=== PATIENT | female | born 1970 | race Caucasian/White ===

== ENCOUNTER 2018-04-04 10:11 | Emergency (ER) | payer SELFPAY ==
--- NOTE | 2018-04-04 10:38 | UC ---
Hand/Wrist HPI - HPI Summary HPI Summary: Patient was handling her dogs and injured her thumb 2 days ago. the thumb is swollen, bruised and the swelling runs down into the wrist - History Of Current Complaint Stated Complaint: LEFT THUMB INJURY Time Seen by Provider: 04/04/18 10:31 Hx Obtained From: Patient Hx Last Menstrual Period: 3 weeks ago Onset/Duration: Sudden Onset, Lasting Days Severity Initially: Severe Severity Currently: Severe Character Of Pain: Throbbing, Spasmodic, Stiffness Aggravating Factor(s): Movement Alleviating Factor(s): Nothing Associated Signs And Symptoms: Positive: Swelling, Bruising - Allergies/Home Medications Allergies/Adverse Reactions: Allergies Allergy/AdvReac Type Severity Reaction Status Date / Time No Known Allergies Allergy Verified 04/04/18 10:41 Home Medications: Home Medications NK [No Home Medications Reported] 04/04/18 [History Confirmed 04/04/18] PMH/Surg Hx/FS Hx/Imm Hx Previously Healthy: Yes - Surgical History Surgical History: Yes Surgery Procedure, Year, and Place: OR to reset a dislocated shoulder - Family History Known Family History: Positive: Other - mom with brain aneurysm Negative: Cardiac Disease, Hypertension - Social History Alcohol Use: Occasionally Substance Use Type: None Smoking Status (MU): Former Smoker Amount Used/How Often: less than 1/2 ppd Length of Time of Smoking/Using Tobacco: started ~ age 18 Have You Smoked in the Last Year: Yes When Did the Patient Quit Smoking/Using Tobacco: quit 03/19/2015 Review of Systems All Other Systems Reviewed And Are Negative: Yes Constitutional: Positive: Negative Skin: Positive: Bruising Eyes: Positive: Negative ENT: Positive: Negative Respiratory: Positive: Negative Cardiovascular: Positive: Negative Gastrointestinal: Positive: Negative Genitourinary: Positive: Negative Motor: Positive: Negative Neurovascular: Positive: Negative Musculoskeletal: Positive: Decreased ROM, Edema Neurological: Positive: Negative Psychological: Positive: Negative Is Patient Immunocompromised?: No Physical Exam Triage Information Reviewed: Yes Appearance: Well-Appearing, Well-Nourished, Pain Distress Vital Signs Reviewed: Yes Eye Exam: Normal ENT Exam: Normal Dental Exam: Normal Neck exam: Normal Cardiovascular Exam: Normal Cardiovascular: Positive: RRR, No Murmur, Pulses Normal Abdominal Exam: Normal Abdomen Description: Positive: Nontender, No Organomegaly, Soft Bowel Sounds: Positive: Present Musculoskeletal: Positive: ROM Limited @ - due to pain and swelling, Edema @ - left thumb into wrist Neurological Exam: Normal Psychological Exam: Normal Skin: Positive: Other - bruising on the left thumb Hand/Wrist Course/Dx - Course Course Of Treatment: hx obtained, exam performed ,meds reviewed, xray obtained, possible chip fracture noted - Differential Dx/Diagnosis Differential Diagnosis/HQI/PQRI: Contusion, Fracture, Sprain, Strain Provider Diagnosis: Fracture of distal phalanx of thumb Discharge - Sign-Out/Discharge Documenting (check all that apply): Patient Departure All imaging exams completed and their final reports reviewed: Yes - Discharge Plan Condition: Stable Disposition: HOME Patient Education Materials: Thumb Fracture (ED) Referrals: No Primary Care Phys,NOPCP [Primary Care Provider] - Additional Instructions: 1. use the brace for the next 2 weeks to help with healing. 2. The xray showed a possible small chip fracture to the end of the thumb. 3. If not improving over the next week, follow upw ith orthopedics for futher exam. 3. Soak in warm water a few times a day - Billing Disposition and Condition Condition: STABLE Disposition: Home
[2018-04-04 10:40] VITALS: BP 128/70
== END 2018-04-04 11:29 | disposition home or self-care (01) ==
LOC: UCCORT 10:11
DX: S62.525A Nondisplaced fracture of distal phalanx of left thumb, initial encounter for closed fracture (principal); X58.XXXA Exposure to other specified factors, initial encounter; Y93.89 Activity, other specified; Y92.9 Unspecified place or not applicable; Z87.891 Personal history of nicotine dependence
CPT/HCPCS: 99211; G0463

== ENCOUNTER 2018-08-12 18:49 | Inpatient (IN) | payer SELFPAY ==
--- NOTE | 2018-08-12 20:21 | ED ---
HPI Chest Pain - HPI Summary HPI Summary: A 48 y/o female presents to [facility] with a chief complaint of cough with chest pain for 1.5 months. The patient came from [facility] where she had a CXR done which was abnormal. She claims that one side of her lungs had fluid and the other side of her lungs had a spot on it. She did not get blood work done while at [facility]. She claims her pain is more on the right side of her chest but started out more on her left side. She is a former smoker, smoking for a long time. She recently quit vaping. Hx of a heart murmur. - History of Current Complaint Chief Complaint: EDChestPainROMI Time Seen by Provider: 08/12/18 20:16 Hx Obtained From: Patient Hx Last Menstrual Period: 3 weeks ago Onset/Duration: Started Weeks Ago, Still Present Timing: Constant, Lasting Weeks Initial Severity: Mild Current Severity: Mild Pain Intensity: 2 Pain Scale Used: 0-10 Numeric Chest Pain Location: Diffuse - more right sided Chest Pain Radiates: No Character: Other: - unable to describe Aggravating Factor(s): Nothing Alleviating Factor(s): Nothing Associated Signs and Symptoms: Positive: Cough. Negative: Fever - Allergy/Home Medications Allergies/Adverse Reactions: Allergies Allergy/AdvReac Type Severity Reaction Status Date / Time No Known Allergies Allergy Verified 08/12/18 13:55 Home Medications: Home Medications NK [No Home Medications Reported] 08/12/18 [History Confirmed 08/12/18] PMH/Surg Hx/FS Hx/Imm Hx Endocrine/Hematology History: Denies: Hx Diabetes, Hx Thyroid Disease Cardiovascular History: Denies: Hx Hypertension Respiratory History: Denies: Hx Asthma, Hx Chronic Obstructive Pulmonary Disease (COPD) GI History: Denies: Hx Ulcer - Surgical History Surgery Procedure, Year, and Place: OR to reset a dislocated shoulder Infectious Disease History: No Infectious Disease History: Denies: Hx Clostridium Difficile, Hx Hepatitis, Hx Human Immunodeficiency Virus (HIV), Hx of Known/Suspected MRSA, Hx Shingles, Hx Tuberculosis, Hx Known/ Suspected VRE, Hx Known/Suspected VRSA, History Other Infectious Disease, Traveled Outside the [place] in Last 30 Days - Family History Known Family History: Positive: Other - mom with brain aneurysm Negative: Cardiac Disease, Hypertension - Social History Alcohol Use: Rare Substance Use Type: Reports: None Hx Tobacco Use: Yes Smoking Status (MU): Former Smoker Type: Smokeless Tobacco Amount Used/How Often: less than 1/2 ppd Length of Time of Smoking/Using Tobacco: started ~ age 18 Have You Smoked in the Last Year: Yes Review of Systems Negative: Fever Positive: Chest Pain Positive: Cough All Other Systems Reviewed And Are Negative: Yes Physical Exam - Summary Physical Exam Summary: VITAL SIGNS: Reviewed. GENERAL: Patient is a well-developed and nourished FEMALE who is lying comfortable in the stretcher. Patient is not in any acute respiratory distress. HEAD AND FACE: No signs of trauma. No ecchymosis, hematomas or skull depressions. No sinus tenderness. EYES: PERRLA, EOMI x 2, No injected conjunctiva, no nystagmus. EARS: Hearing grossly intact. Ear canals and tympanic membranes are within normal limits. MOUTH: Oropharynx within normal limits. NECK: Supple, trachea is midline, no adenopathy, no JVD, no carotid bruit, no c- spine tenderness, neck with full ROM. CHEST: Symmetric, no tenderness at palpation LUNGS: Clear to auscultation bilaterally. No wheezing or crackles. CVS: Regular rate and rhythm, S1 and S2 present, no murmurs or gallops appreciated. ABDOMEN: Soft, non-tender. No signs of distention. No rebound no guarding, and no masses palpated. Bowel sounds are normal. EXTREMITIES: FROM in all major joints, no edema, no cyanosis or clubbing. NEURO: Alert and oriented x 3. No acute neurological deficits. Speech is normal and follows commands. SKIN: Dry and warm Triage Information Reviewed: Yes Vital Signs On Initial Exam: Initial Vitals Temp Pulse Resp BP Pulse Ox 98.4 F 102 18 146/77 96 08/12/18 18:53 08/12/18 18:53 08/12/18 18:53 08/12/18 18:53 08/12/18 18:53 Vital Signs Reviewed: Yes Diagnostics - Vital Signs Vital Signs Temp Pulse Resp BP Pulse Ox 08/12/18 18:53 98.4 F 102 18 146/77 96 - Laboratory Result Diagrams: 08/12/18 21:12 08/12/18 21:12 Lab Statement: Any lab studies that have been ordered have been reviewed, and results considered in the medical decision making process. - CT Chest CT Interpretation Completed By: Radiologist Summary of CT Findings: 1. Airspace disease involving the bilateral upper lobes concerning for. pneumonia. Followup recommended to exclude neoplastic process. 2. Moderate left-sided pleural effusion. ED physician has reviewed this imaging report. - EKG 19:04 Cardiac Rate: NL - 90 bpm EKG Rhythm: Sinus Rhythm Summary of EKG Findings: EKG at 19:04 showed NSR at 90 bpm, Normal axis. Normal interval. No ischemic changes. Re-Evaluation - Re-Evaluation First Eval Re-Evaluation Time: 20:46 Change: Unchanged Comment: Pt reports that she has not seen an MD in 20 years. She has a Hx of night fever and night sweats. The patient has lost weight in recent months but this was intentional as she was trying to lose weight. 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 Second Eval Re-Evaluation Time: 23:47 Change: Unchanged Comment: Discussed results and plan for admission. Chest Pain Course/Dx - Course Course Of Treatment: A 48 y/o female presents to [facility] with a chief complaint of cough with chest pain for 1.5 months. Pt reports that she has not seen an MD in 20 years. She has a Hx of night fever and night sweats. The patient has lost weight in recent months but this was intentional as she was trying to lose weight. 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 Reviewed CXR at . Pt has bilateral upper lobe infiltrate, larger on the left side. Suspicious for TB. Pt placed on negative pressure isolation. The physical exam was unremarkable. EKG at 19:04 showed NSR at 90 bpm, Normal axis. Normal interval. No ischemic changes. Blood work and chemistries obtained and are WNL. In the ED course the patient was given Levaquin, Iohexol and Sodium Chloride IV. Chest CT impression: 1. Airspace disease involving the bilateral upper lobes concerning for. pneumonia. Followup recommended to exclude neoplastic process. 2. Moderate left-sided pleural effusion. Case discussed with Dr. Joshi, hospitalist, who accepted the patient for admission. The patient is agreeable with this plan. - Diagnoses Provider Diagnoses: Pneumonia, Pleural effusion, right - Provider Notifications Discussed Care Of Patient With: Lupe Joshi Time Discussed With Above Provider: 23:44 Instructed by Provider To: Admit As Inpatient - Critical Care Time Critical Care Time: 30-74 min Discharge - Sign-Out/Discharge Documenting (check all that apply): Patient Departure - admit Patient Received Moderate/Deep Sedation with Procedure: No - Discharge Plan Condition: Fair Disposition: ADMITTED TO [facility] Referrals: No Primary Care Phys,NOPCP [Primary Care Provider] - - Attestation Statements Document Initiated by Scribe: Yes Documenting Scribe: Myron Montalvo Provider For Whom Scribe is Documenting (Include Credential): Vito Castro MD Scribe Attestation: IMyron, scribed for Vito Castro MD on 08/12/18 at 3114.
[2018-08-12] MEDS ORDERED: NS 0.9% 1000 ML** 1,000 ML IV ONE (20:50)
[2018-08-12] MEDS ORDERED: Levofloxacin 750 MG IVPREMIX(* 750 MG/150 ML BAG IVPB ONE (20:50)
[2018-08-12 21:20] LABS: ABS Basophils 0 10^3/ul (0-0.2); ABS Eosinophils 0.3 10^3/ul (0-0.6); ABS Lymphocytes 1.5 10^3/ul (1.0-4.8); ABS Monocytes 0.6 10^3/ul (0-0.8); ABS Neutrophils 7.5 10^3/ul (1.5-7.7); ABS Nucleated RBC 0 10^3/ul; Eosinophil % 3.3 %; Hematocrit 35 % (33-41); Hemoglobin 11.4 g/dL (12.0-16.0); Lymphocyte % 14.8 %; Mean Corpuscular HGB Conc 33 g/dL (31-36); Mean Corpuscular Hemoglobin 27 pg (27-31); Mean Corpuscular Volume 82 fL (80-97); Nucleated Red Blood Cells % 0; Platelet Count 487 10^3/uL (150-450); Red Blood Count 4.29 10^6 /uL (3.70-4.87); Red Cell Distribution Width 14 % (10.5-15); White Blood Count 9.9 10^3/uL (3.5-10.8)
[2018-08-12 21:28] LABS: Activated Partial Thrombo Time 33.6 seconds (26.0-36.3); INR 1.07 (0.77-1.02)
[2018-08-12 21:38] LABS: Albumin 3.8 g/dL (3.2-5.2); Albumin/Globulin Ratio 1.1 (1-3); BUN/Creatinine Ratio 15.3 (8-20); C Reactive Protein 109.62 mg/L (<8.01); Calcium 9.3 mg/dL (8.6-10.3); EGFR African American 132.8 (>60); EGFR Non-African American 109.7 (>60); Globulin 3.6 g/dL (2-4); Potassium 3.7 mmol/L (3.5-5.0); Total Bilirubin 0.4 mg/dL (0.2-1.0); Total Protein 7.4 g/dL (6.4-8.9)
[2018-08-12] MEDS ORDERED: Iohexol 300* (CONTRAST) 10 ML SDV IV ONE (21:47)
[2018-08-13] MEDS ORDERED: Acetaminophen TAB* 325 MG PO PRN (00:18)
[2018-08-13] MEDS ORDERED: guaiFENesin/CODIEN 100MG-10MG* 5 ML UDC PO PRN (00:24)
--- NOTE | 2018-08-13 03:35 | HP ---
HISTORY AND PHYSICAL: DATE OF ADMISSION: 08/13/18 PRIMARY CARE PHYSICIAN: No PCP. HEALTHCARE PROXY: Brother, Aaron Lockett, . Other close contact, [id number], June, [phone]. CODE STATUS: Full. CHIEF COMPLAINT: Mass on chest x-ray. HISTORY OF PRESENT ILLNESS: Ms. Lockett is a 48-year-old healthy woman, who is presenting with 6 to 8 weeks of a nonproductive cough that eventually became associated with pain in her upper right chest with cough. The patient has not seen a doctor in approximately 20 years, but as this cough has been unremitting and now associated with chest pain, she had decided to go to an urgent care where a chest x- ray was performed and had concerning findings, so she was referred to the emergency room. The patient does endorse recent night sweats and a few pounds of weight loss, which was intentional. Around this time, she has also been experiencing swelling and pain of the joints in her hands, knees, and feet which she worried was related to her family history of rheumatoid arthritis. Otherwise, a 10-point review of systems is negative. PAST MEDICAL HISTORY: Cardiac murmur. PAST SURGICAL HISTORY: Right shoulder surgery. HOME MEDICATIONS: Denies. ALLERGIES: No known drug allergies. FAMILY HISTORY: Significant for mother with rheumatoid arthritis. She does not know her father's health history. SOCIAL HISTORY: The patient lives with her brother, Aaron and [id number], June. 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 She has a 26-pack year history of smoking and quit in 2014. She does not drink or do any other drugs. PHYSICAL EXAMINATION GENERAL: She is a well-appearing woman, in no distress, speaking in full sentences and very pleasant. VITAL SIGNS: The patient is afebrile, heart rate in the 80s, blood pressure 120s/70s, respirations 12, oxygen saturation 97% on room air. HEENT: Pupils equal, round, and reactive to light. Oropharynx clear. NECK: No cervical lymphadenopathy. Supple. LUNGS: Clear to auscultation bilaterally. The patient coughs when taking deep breaths. HEART: Regular rate and rhythm. No murmurs, gallops, or rubs. ABDOMEN: Soft, nontender, nondistended. EXTREMITIES: Swelling over 2nd and 3rd MCP joints bilaterally, no erythema; LE warm and well perfused. No edema. DIAGNOSTIC STUDIES/LAB DATA: Labs reviewed and significant for mild anemia, hemoglobin 11.4 normocytic, platelets elevated to 487. BMP and hepatic panel unremarkable. C-reactive protein 110. A chest CT with contrast was significant for airspace disease involving the bilateral upper lobes concerning for pneumonia, but followup is recommended to exclude neoplastic process. Moderate left-sided pleural effusion. ASSESSMENT AND PLAN: 48-year-old healthy woman with significant past smoking history, who is presenting with subacute cough and night sweats and was found on CT scan to have findings concerning for pneumonia versus neoplastic process. 1. Lung disease, NOS. As the patient has been without fevers, has had several weeks of mild symptoms and has no white count, I have very low suspicion for bacterial pneumonia at this point and will not continue Levaquin given in the emergency room. While the patient has had no tuberculosis exposures or travel, given location of airspace disease, we will continue with tuberculosis rule out. Most concerned for neoplastic process in this patient was significant smoking history and several weeks of cough. We will need Pulmonology consult in the morning as a diagnostic thoracentesis will be valuable for this diagnosis. Will maintain patient on guaifenesin with codeine as needed for cough. Follow up blood and sputum cultures. 2. Joint pain. Unclear if the patient has had chronic joint pain or if truly has been associated with the beginning of cough. It is unlikely to be related to a new lung malignancy and her symptoms do not quite match up with hypertrophic osteoarthropathy. We will order a rheumatoid factor level for the morning and if symptoms persist, can consider rheumatologic consult. 3. DVT prophylaxis start Lovenox daily. 4. Code status, full code. TIME SPENT: Approximately 60 minutes was spent on admission of this patient, more than half of which was spent at bedside for interview and exam. [id number]/[facility] #: [id number] FRANK
[2018-08-13 08:10] LABS: ABS Basophils 0 10^3/ul (0-0.2); ABS Eosinophils 0.4 10^3/ul (0-0.6); ABS Lymphocytes 1.4 10^3/ul (1.0-4.8); ABS Monocytes 0.8 10^3/ul (0-0.8); ABS Neutrophils 5.1 10^3/ul (1.5-7.7); ABS Nucleated RBC 0 10^3/ul; Eosinophil % 5.6 %; Hematocrit 33 % (33-41); Lymphocyte % 18.4 %; Mean Corpuscular HGB Conc 33 g/dL (31-36); Mean Corpuscular Hemoglobin 27 pg (27-31); Mean Corpuscular Volume 82 fL (80-97); Nucleated Red Blood Cells % 0; Platelet Count 445 10^3/uL (150-450); Red Blood Count 4.06 10^6 /uL (3.70-4.87); Red Cell Distribution Width 14 % (10.5-15); White Blood Count 7.8 10^3/uL (3.5-10.8)
[2018-08-13] MEDS ORDERED: Enoxaparin(*) 40 MG/0.4 ML SYR SUBCUT SCH (09:00)
[2018-08-13] MEDS ORDERED: Sodium Chloride(INHALANT) 3%* 4 ML NEB.SOLN INH PRN (09:01)
[2018-08-13] MEDS ORDERED: PPD test dose* 5 TU/0.1 ML TEST (*USE PPD ORDER SET*) INTRADERM ONE (11:00)
--- NOTE | 2018-08-13 12:27 | CONS ---
CONSULTATION REPORT: DATE OF CONSULT: 08/13/18 PRIMARY CARE PROVIDER: No PCP. PROVIDER REQUESTING CONSULTATION: Haily Mercado NP. CONSULTING SERVICE: Infectious Disease. ATTENDING PROVIDER: Dr. Shin Waddell* (dictated by Cipriano Adams NP). REASON FOR CONSULT: Lung mass, infective versus malignancy. HISTORY OF PRESENT ILLNESS: Ms. Lockett is a 48-year-old female with no significant past medical history, who initially presented to Urgent Care complaining of 6 to 8 weeks of a nonproductive cough. She developed associated upper right chest discomfort with the cough. She denies any fevers or chills. She reports fatigue that she states is her baseline. She also reports foot pain while she is at work that has progressed to knee pain bilaterally with the left being worse than the right. She denies any injury or trauma to her knees. Additionally, she has some discomfort in both hands. She denies any urinary symptoms such as urgency or dysuria, she reports urinary frequency at baseline due to drinking large amounts of water. She denies muscle pain, rash, diarrhea , constipation, or recent travel. She reports when her symptoms first started she had a little bit of a runny nose, but this has since resolved. She denies any known exposure to tuberculosis. She has never had a PPD in the past. She does endorse some night sweats, and reports weight loss, but states this is intentional. Due to her symptoms, she presented to Urgent Care for evaluation. While at Urgent Care, she had a chest x-ray showing interval development of a right upper lobe mass with left-sided pleural thickening and pleural effusion with left basilar atelectasis versus consolidation. She is referred to the emergency room for further evaluation. While in the emergency room, she had a chest CT showing "significant airspace disease involving bilateral upper lobes concerning for possible pneumonia and a moderate left-sided pleural effusion". She had labs that were mostly unremarkable, no leukocytosis. She was afebrile with a CRP of 109. She was referred to the hospitalist service for evaluation and admission. IMPRESSION: 1. Abnormal chest x-ray and chest CT. The findings on imaging are consistent with infectious versus neoplastic process. This could also represent a rheumatoid lung process. Infectious process includes TB vs pneumonia. There are no crackles on exam, she is afebrile, and no leukocytosis. I have a low suspicion for pneumonia at this time. She is noted to have an elevated rheumatoid factor. First AFB is being collected this morning. PLAN/ASSESSMENT: I recommend placing a PPD and attempt to get an induced sputum today. If able to obtain a sputum, can do a sputum culture with an acid fast bacilli testing; if unable to get an induced sputum, she can be taken off of airborne precautions as TB is unlikely. If able to obtain a sputum sample, she will need to have 3 AFBs. I recommend adding HIV testing to her ER labs and continue to hold on antibiotics at this time. I recommend getting a pulmonology consult to evaluate the cause of the pleural effusion with a bronchoscopy versus thoracentesis. Recommend doing followup labs to further evaluate for the possibility of rheumatoid arthritis. PAST MEDICAL HISTORY: Heart murmur. PAST SURGICAL HISTORY: Status post right shoulder surgery. MEDICATIONS: Home medications: None. Hospital medications: 1. Acetaminophen 650 mg by mouth every 4 hours as needed for fever/pain. 2. Lovenox 40 mg subcutaneously every day. 3. Robitussin AC 10 mL by mouth every 6 hours as needed for cough. 4. Sodium chloride 3 mL inhalation every 2 hours as needed for sputum induction. ALLERGIES: No known drug allergies. FAMILY HISTORY: Denies any family history of recurrent or resistant infections. Denies family history of coronary artery disease or diabetes. A maternal grandfather with a history of skin cancer. Mother with a history of rheumatoid arthritis. SOCIAL HISTORY: She denies tobacco or recreational drug use. She is a former smoker, quitting in 2014. Prior to that, she had a half a pack a day smoking history for 26 years. REVIEW OF SYSTEMS: I performed a 10-point review of systems. All the pertinent positives and negatives are mentioned in the history of present illness. The remaining review of systems are negative. PHYSICAL EXAM: Vital Signs: Temperature 97.9, heart rate 77, respiratory rate 16, O2 sat 96% on room air, blood pressure 101/65. General Appearance: Alert, pleasant, appears to be in no acute distress. Head: Normocephalic, atraumatic. ENT: Pupils are equal and reactive to light. Extraocular movements are intact. No conjunctival hemorrhage. Mucous membranes are moist. Neck is supple. No lymphadenopathy noted. Neurological: Alert and oriented x4. Cranial nerves II through XII are grossly intact. Cardiovascular: Regular rate and rhythm. S1, S2 are present. No murmurs, rubs, or gallops heard. Respiratory: No accessory muscle use. The lungs are clear to auscultation bilaterally. Abdomen: Bowel sounds present x4. Abdomen is soft, nontender, nondistended. Extremities: No lower extremity edema. DP and PT pulses are 2+ and symmetric. Musculoskeletal: No clubbing or cyanosis noted. Exhibits good strength in all extremities. There is no tenderness with palpation of the neck or spine over the back. She has swelling over the second and third MTP joints, bilateral. There is no erythema. Psychological: Calm and cooperative. Skin: No rashes or abnormalities seen on the exposed skin. DIAGNOSTIC STUDIES/LAB DATA: Sodium 138, potassium 3.7, chloride 102, CO2 of 27 , BUN 9, creatinine 0.59, glucose 100. White blood cell count 7.8, hemoglobin 11.0, hematocrit 33, platelet count 445. Rheumatoid factor 118, CRP 109. Please see impression and recommendations outlined above. Thank you for asking us to see Ms. Lockett in consultation. This has been discussed with Haily Mercado NP. TIME SPENT: Time spent for this consultation was approximately 40 minutes; greater than half of that was spent with the patient discussing past medical history, medications, the events leading to her arrival, and performing a physical examination. The case has been reviewed with the attending, Dr. Waddell, who agrees with the plan of care. Reviewed by CIPRIANO ADAMS, TUMBLER DRIER OPERATOR-C 08/14/18 1533 Seen, examined, discussed sybil Adams DIGITAL ARCHIVIST, I agree with her full note. Impression/Recommendations: 1. Biapical lung infiltrates, pleural effusion with 2 months cough and weight loss. Infectious considerations include TB, nocardia, endemic fungi. Non infectious include malignancy and rheumatoid lung disease. Will place TST, induce sputa for AFB smear and culture x3. Dr Horton is arranging a thoracentesis as well. No antibiotics for now. [id number]/[facility] #: [id number] MTDD
--- NOTE | 2018-08-13 15:16 | PN ---
Subjective Date of Service: 08/13/18 Interval History: Ms. Lockett does not feel any better or worse than yesterday. Her sister in law is at the bedside. They are very anxious to have results and know whether or not this is a malignancy. She continues to have a dry cough, nonproductive. Did not sleep well overnight. Complains of arthralgias - bilat knees and hands. She reports nodules on bilat hands. Denies CP, SOB, N/V. Endorses a poor appetite. She did need a note for work indicating that she was hospitalized at this time. No concerns from nursing. Family History: Unchanged from Admission Social History: Unchanged from Admission Past Medical History: Unchanged from Admission Objective Active Medications: Acetaminophen (Tylenol Tab*) 650 mg PO Q4H PRN FEVER/PAIN Enoxaparin Sodium (Lovenox(*)) 40 mg SUBCUT Q24H RULA Guaifenesin/Codeine Phosphate (Robitussin Ac 100mg-10mg*) 10 ml PO Q6H PRN COUGH Sodium Chloride (Sodium Chloride(Inhalant) 3%*) 3 ml INH Q2H PRN Sputum induction Vital Signs - 8 hr 08/13/18 08/13/18 08/13/18 07:31 08:00 12:05 Temperature 97.9 F 99.4 F Pulse Rate 77 76 Respiratory 16 16 16 Rate Blood Pressure 101/65 116/66 (mmHg) O2 Sat by Pulse 96 96 Oximetry 08/13/18 15:00 Temperature 98.7 F Pulse Rate 89 Respiratory 16 Rate Blood Pressure 114/65 (mmHg) O2 Sat by Pulse 95 Oximetry Oxygen Devices in Use Now: None Appearance: Middle-aged female sitting in chair in NAD Eyes: No Scleral Icterus Ears/Nose/Mouth/Throat: Mucous Membranes Moist Neck: NL Appearance and Movements; NL JVP, Trachea Midline Respiratory: Symmetrical Chest Expansion and Respiratory Effort, - - Diminished LLL, otherwise clear Cardiovascular: NL Sounds; No Murmurs; No JVD, RRR Abdominal: NL Sounds; No Tenderness; No Distention Extremities: No Edema Neurological: Alert and Oriented x 3 Lines/Tubes/Other Access: Clean, Dry and Intact Peripheral IV Nutrition: Taking PO's Result Diagrams: 08/13/18 07:51 08/12/18 21:12 Assess/Plan/Problems-Billing Assessment: Ms. Lockett is a 48 yo F with no significant PMH who presented to the ED with c/o 6 -8 weeks of nonproductive cough, night sweats, and chest pain and was admitted because of abnormal findings on CT concerning for malignancy vs infectious process. - Patient Problems (1) Cough present for greater than 3 weeks Code(s): R05 - COUGH Comment: - Nonproductive cough for 6-8 weeks with associated CP and night sweats - CT shows bilat upper lobe airspace disease concerning for pneumonia or neoplastic process and moderate left sided pleural effusion - Differentials include TB, malignancy (long smoking history), extra-articular rheumatoid manifestation (FH of RA and arthralgias), CAP - Appreciate Pulmonology consult - Appreciate ID consult; recommends PPD, acid fast sputum testing, HIV testing, further testing for rheumatoid component - PPD placed today, to be read Friday - Anticipate will likley need thoracentesis to determine etiology of effusion - One sputum sample obtained today by induction sent for acid fast testing; will need 2 additional samples on separate days to r/o TB but will need to continue airborne precautions for now - No indication for abx at this point (2) Arthralgia Code(s): M25.50 - PAIN IN UNSPECIFIED JOINT Comment: - Bilateral feet, knees, and hands with edema over bilat MTP joints - Family history of RA (mother) - RF and CRP elevated, though these are nonspecific - Will check other labs including QUIANA, ANCA, cryoglobulin, ESR, dsDNA, cyclic citrullinated peptide - Possible that this does represent RA and CT findings are an extra-articular manifestation (3) DVT prophylaxis Comment: - Lovenox (4) Full code status Code(s): Z78.9 - OTHER SPECIFIED HEALTH STATUS Comment: Status and Disposition: Inpatient for continued workup of symptoms and CT findings. Anticipate d/c home when medically stable, timeframe unknown. Attending: Dottie Bunch
[2018-08-13 17:13] LABS: Erythrocyte Sed Rate 29 mm/Hr (0-19)
--- NOTE | 2018-08-13 22:21 | CONS ---
PULMONARY CONSULTATION REPORT: DATE OF CONSULT: 08/13/18 CONSULTATION REQUESTED BY: Haily Mercado NP REASON FOR CONSULTATION: Evaluation of abnormal CT chest. HISTORY OF PRESENT ILLNESS: The patient is a 48-year-old woman, a former smoker with family history of rheumatoid arthritis, personal history of cardiac murmur. The patient presents for evaluation of productive cough over the past 6 to 8 weeks, which has been gradually worsening. The patient also with pain in the right chest. The patient also reports joint swelling and inflammation in the extremities in the small joints in the hand. Symptoms were not improving and decided to come into the emergency room. The patient denies known sick contacts recently. She does report low-grade fevers and night sweats. The patient reports weight loss recently, which she thinks is intentional. Further evaluation in the emergency room included CT scan of the chest. I have personally reviewed CT scan of the chest images. Also reviewed the results with the patient - the patient noted to have airspace opacities predominantly involving upper lobes greater on the left side. The patient also with moderate left-sided pleural effusion with adjacent atelectasis of the left lung. No significant other findings noted other than mild mediastinal adenopathy. PAST MEDICAL HISTORY: Cardiac murmur. PAST SURGICAL HISTORY: Right shoulder surgery. MEDICATIONS: The patient not on any medications at home. ALLERGIES: No known drug allergies. FAMILY HISTORY: Rheumatoid arthritis in mother. 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 Twenty six pack-year smoking history , quit in 2014. Does not drink or use other drugs. PHYSICAL EXAM: The patient in bed, in no apparent distress. Vital Signs: Temperature 99.4, pulse 76 beats per minute, respiratory rate 16, per minute O2 96% on room air, blood pressure 116/66. HEENT: Pupils equal and reactive to light. Mucous membranes moist. Lungs: Good air entry bilaterally. No wheeze or rhonchi. Cardiovascular: S1 and S2 present, regular. No murmurs, gallops, or rubs. Abdomen: Soft, nontender, nondistended. Bowel sounds present. Musculoskeletal: Swollen and inflamed metacarpal phalangeal joints in extremities bilaterally. Extremities: Normal range of motion. Skin: No rash or bruises. Neuro: Alert, awake, oriented x3. No focal deficits. DIAGNOSTIC STUDIES/LAB DATA: Hemoglobin 11.0, hematocrit 33, WBC count 7.8, platelet count 445. ESR elevated at 29. Sodium 138, potassium 3.7, chloride 102, bicarb 27, BUN 9, creatinine 0.59, lactic acid 0.6. CRP 109.62. BNP within normal limits. LFTs within normal limits. Calcium within normal limits. Rheumatoid factor is elevated at 118. HIV and hepatitis B negative. AFB x1 negative. CT scan of the chest as described above in HPI. IMPRESSION AND RECOMMENDATIONS: 48-year-old female with prior smoking history, family history of rheumatoid arthritis, admitted with cough for 3 weeks, night sweats, weight loss, found to have airspace opacities in upper lung zones bilaterally. CT chest abnormalities - inflammatory versus infectious versus neoplastic. Given elevated rheumatoid factor, pleural effusion, and joint symptoms and 3- week progression of symptoms suggestive of possible rheumatoid arthritis related lung involvement. Given significant smoking history, neoplastic disease is also in the differential, although less likely than probably rheumatoid arthritis. The patient with moderate left pleural effusion. Will schedule the patient for thoracentesis with image guidance tomorrow. Next, I will hold Lovenox after midnight. Procedure was discussed in detail with the patient. Associated risks and benefits were thoroughly explained. I agree with empiric treatment of pneumonia. Further recommendations pending thoracentesis results. [id number]/[facility] #: [id number] MTDD
[2018-08-14] MEDS ORDERED: LORazepam TAB(*) 0.5 MG PO PRN (08:56)
--- NOTE | 2018-08-14 09:20 | PN ---
Progress Note - Progress Note Date of Service: 08/14/18 SOAP: Subjective: CC: Abnormal chest xray/CT due to infective vs neoplasm source HPI: Ms. Lockett is a 48 yo female with no significant PMH who presented to the hospital with complaints of a non productive cough. She does have a 26 year smoking history. She continues to have an intermittent non productive cough, occasionally she is able to get sputum part way up but is unable to get it all the way up to spit out. Denies fever, chills, shortness of breath, chest discomfort, N/V/D. Objective: Laboratory Results - last 24 hr 08/12/18 08/12/18 08/13/18 21:12 21:12 07:51 WBC 9.9 7.8 RBC 4.29 4.06 Hgb 11.4 L 11.0 L Hct 35 33 MCV 82 82 MCH 27 27 MCHC 33 33 RDW 14 14 Plt Count 487 H 445 MPV 7.0 L 7.0 L Neut % (Auto) 75.5 65.1 Lymph % (Auto) 14.8 18.4 Brooks % (Auto) 5.9 10.3 Eos % (Auto) 3.3 5.6 Baso % (Auto) 0.5 0.6 Absolute Neuts (auto) 7.5 5.1 Absolute Lymphs (auto) 1.5 1.4 Absolute Monos (auto) 0.6 0.8 Absolute Eos (auto) 0.3 0.4 Absolute Basos (auto) 0 0 Absolute Nucleated RBC 0 0 Nucleated RBC % 0 0 ESR Cancelled 29 H HIV 1&2 Antibody Nonreactive Physical Exam: General: NAD, sitting up in bed Neurological: Alert and Oriented x3 Cardiovascular: Heart rate regular Respiratory: Lung sounds clear Abdominal: Bowel sounds present, ABD soft, non tender and non distended Skin: No rashes or abnormalities seen on the exposed skin Microbiology 08/13/18 10:04 Acid Fast Bacilli Smear - Final Respiratory - Sputum Induced 08/12/18 21:12 Aerobic Blood Culture - Preliminary Blood Venous No Growth Day 1 Anaerobic Blood Culture - Preliminary No Growth Day 1 08/12/18 21:12 Aerobic Blood Culture - Preliminary Blood Venous No Growth Day 1 Anaerobic Blood Culture - Preliminary No Growth Day 1 08/13/18 10:04 Gram Stain - Final Sputum Induced Assessment: 1. Non productive cough with abnormal chest imaging. Differential DX include: Pleural effusion secondary to RA lung disease, PNA, TB, or neoplastic process. Afebrile and no leukocytosis. Blood cultures with no growth on day 1. AFB from yesterday negative. AFB today pending. PPD was placed yesterday. Further RA labs pending at this time. 2. Negative HIV testing. Plan: Continue to hold ABX. She will have a thoracentesis later today, further recommendations based on those results. She will require a 3rd sputum for AFB.
[2018-08-14 10:52] LABS: Body Fluid Source Pleural Fluid
--- NOTE | 2018-08-14 11:54 | PRO ---
THORACENTESIS REPORT: DATE OF PROCEDURE: 08/14/18 INDICATION FOR PROCEDURE: Diagnostic thoracentesis ANESTHESIA: Local anesthesia with 1% lidocaine, 6 mL. DESCRIPTION OF PROCEDURE: Informed consent was obtained from the patient prior to the procedure after all the risks and benefits were thoroughly explained. The patient was sitting up and leaning forwards. A portable ultrasound was utilized at the bedside. Necessary images were captured and were scanned into her medical record. Strict aseptic precautions and barrier techniques were followed. Area was disinfected with chlorhexidine after ultrasound localization. A CareFusion 8- [place] thoracentesis catheter was utilized for the procedure. Area was anesthetized with 1% lidocaine, 6 mL subcutaneously intradermally down into the pleural space taking precautions. A #11 scalpel blade was utilized to make stab incision. CareFusion 8-[place] thoracentesis catheter was then inserted under manual suction taking precautions. Catheter was left in place and needle was removed. 800 mL of dark yellow fluid was drained under manual suction. The patient tolerated the procedure well. Catheter was then removed. Post-procedure chest x-ray was ordered and pending at the time of dictation. [id number]/[facility] #: [id number] [facility] HOSPITALMaxwell
[2018-08-14 13:01] LABS: Body Fluid Mono 16 %
--- NOTE | 2018-08-14 16:20 | PN ---
Progress Note - Progress Note Date of Service: 08/14/18 - Pulm f/u note Note: Pt seen and examined at bedside. Pt reports feeling better. Has intermittent non productive cough. Denies fever, chills, shortness of breath, chest discomfort, N/V/D. Active Medications Generic Name Dose Route Start Last Admin Trade Name Freq PRN Reason Stop Dose Admin Acetaminophen 650 mg 08/13/18 00:18 08/13/18 02:51 Tylenol Tab* PO 650 mg Q4H PRN Administration FEVER/PAIN Guaifenesin/Codeine Phosphate 10 ml 08/13/18 00:24 Robitussin Ac 100mg-10mg* PO Q6H PRN COUGH Lorazepam 0.5 mg 08/14/18 08:56 Ativan Tab(*) PO Q6H PRN ANXIETY Pharmacy Profile Note 1 note 08/15/18 13:00 Ppd Reading Note* .SEE ORDER 08/15/18 13:01 ONCE ONE Sodium Chloride 3 ml 08/13/18 09:01 08/14/18 09:20 Sodium Chloride(Inhalant) 3%* INH 3 ml Q2H PRN Administration Sputum induction Vital Signs Temp Pulse Resp BP Pulse Ox 98.2 F 82 16 103/57 97 08/14/18 15:37 08/14/18 15:37 08/14/18 15:37 08/14/18 15:37 08/14/18 15:37 O/E: Pt in NAD HEENT: PERRLA, no JVD Lungs: Diminished air entry at left base CVS: S1, S2+, regular Abd: Soft, BS+ Ext: NO edema Skin: No rash Neuro: NO focal deficits Laboratory Results - last 24 hr 08/13/18 08/14/18 07:51 10:18 ESR 29 H Fluid Source Pleural fluid Fluid Volume 2.5 Fluid Color Yellow Fluid Appearance Cloudy Fluid WBC 2475 Fluid RBC 426 Fluid Tot Cell Count 100 Fluid Neutrophils 16 Fluid Lymphocytes 7 Fluid Monocytes 16 Fluid Eosinophils 61 I/R: 48 y o f former smoker with family h/o RA a/w worsening SOB, low grade fever, wt loss, cough found to have air space opacities b/l, greater on left with moderate lt effusion Infectious versus inflammatory versus neoplastic Pt had thoracentesis at bedside with removal of 800 cc of yellow fluid under manual suction Pt toelrated procedure well, post procedure CXR didnot reveal any PTX Pt clinically improving Extremity swelling + RF is elevated Will await pl fluid results AFBX1 negative Couldnot order RF from pleural fluid Further recommendations pending pl fluid results
--- NOTE | 2018-08-14 17:09 | PN ---
Subjective Date of Service: 08/14/18 Interval History: Ms. Lockett is not feeling any better or worse today. Cough remains the same. She is anxious about test results and does not like that she is stuck in her room d/ t isolation. Denies CP, SOB. Appetite is good. Nursing expressed some concern re anxiety. Family History: Unchanged from Admission Social History: Unchanged from Admission Past Medical History: Unchanged from Admission Objective Active Medications: Acetaminophen (Tylenol Tab*) 650 mg PO Q4H PRN FEVER/PAIN Guaifenesin/Codeine Phosphate (Robitussin Ac 100mg-10mg*) 10 ml PO Q6H PRN COUGH Lorazepam (Ativan Tab(*)) 0.5 mg PO Q6H PRN ANXIETY Pharmacy Profile Note (Ppd Reading Note*) 1 note .SEE ORDER ONCE ONE Sodium Chloride (Sodium Chloride(Inhalant) 3%*) 3 ml INH Q2H PRN Sputum induction Vital Signs - 8 hr 08/14/18 08/14/18 11:54 15:37 Temperature 98.9 F 98.2 F Pulse Rate 92 82 Respiratory 16 16 Rate Blood Pressure 116/71 103/57 (mmHg) O2 Sat by Pulse 97 97 Oximetry Oxygen Devices in Use Now: None Appearance: Middle-aged female sitting in bed in NAD Eyes: No Scleral Icterus Ears/Nose/Mouth/Throat: Mucous Membranes Moist Neck: NL Appearance and Movements; NL JVP, Trachea Midline Respiratory: Symmetrical Chest Expansion and Respiratory Effort, - - Diminished LLL Cardiovascular: NL Sounds; No Murmurs; No JVD, RRR Abdominal: NL Sounds; No Tenderness; No Distention Skin: No Rash or Ulcers Neurological: Alert and Oriented x 3 Lines/Tubes/Other Access: Clean, Dry and Intact Peripheral IV Nutrition: Taking PO's Result Diagrams: 08/13/18 07:51 08/12/18 21:12 Assess/Plan/Problems-Billing Assessment: Ms. Lockett is a 48 yo F with no significant PMH who presented to the ED with c/o 6 -8 weeks of nonproductive cough, night sweats, and chest pain and was admitted because of abnormal findings on CT concerning for malignancy vs infectious process. - Patient Problems (1) Cough present for greater than 3 weeks Code(s): R05 - COUGH Comment: - Nonproductive cough for 6-8 weeks with associated CP and night sweats - CT shows bilat upper lobe airspace disease concerning for pneumonia or neoplastic process and moderate left sided pleural effusion - Differentials include TB, malignancy (long smoking history), extra-articular rheumatoid manifestation (FH of RA and arthralgias), CAP - Appreciate Pulmonology consult; thoracentesis today - Appreciate ID consult; recommends PPD, acid fast sputum testing, HIV testing, further testing for rheumatoid component - PPD placed, to be read Friday - One sputum negative for acid fast testing; will need 2 additional samples 8 hours apart to r/o TB but will need to continue airborne precautions for now - Thora today shows pleural fluid with elevated WBC, eosinophil predominant - No indication for abx at this point (2) Arthralgia Code(s): M25.50 - PAIN IN UNSPECIFIED JOINT Comment: - Bilateral feet, knees, and hands with edema over bilat MTP joints - Family history of RA (mother) - RF and CRP elevated, though these are nonspecific - Pending QUIANA, ANCA, cryoglobulin, ESR, dsDNA, cyclic citrullinated peptide - Possible that this does represent RA and CT findings are an extra-articular manifestation (3) DVT prophylaxis Comment: - Lovenox (4) Full code status Code(s): Z78.9 - OTHER SPECIFIED HEALTH STATUS Comment: Status and Disposition: Inpatient for continued workup of symptoms and CT findings. Anticipate d/c home when medically stable, timeframe unknown. Attending: Dottie Bunch
--- NOTE | 2018-08-15 12:43 | PN ---
Subjective Date of Service: 08/15/18 Interval History: Ms. Lockett is feeling better today. She feels like her cough is less frequent. She is excited that she has been ruled out for TB and is able to leave her room and ambulate around the unit. Hoping to be able to go outside with staff later today. She denies CP or SOB. No concerns from nursing. Family History: Unchanged from Admission Social History: Unchanged from Admission Past Medical History: Unchanged from Admission Objective Active Medications: Acetaminophen (Tylenol Tab*) 650 mg PO Q4H PRN FEVER/PAIN Guaifenesin/Codeine Phosphate (Robitussin Ac 100mg-10mg*) 10 ml PO Q6H PRN COUGH Lorazepam (Ativan Tab(*)) 0.5 mg PO Q6H PRN ANXIETY Vital Signs - 8 hr 08/15/18 08/15/18 07:22 08:06 Temperature 98.1 F Pulse Rate 80 Respiratory 16 16 Rate Blood Pressure 98/64 (mmHg) O2 Sat by Pulse 96 Oximetry Oxygen Devices in Use Now: None Appearance: Middle-aged female sitting in bed in NAD Eyes: No Scleral Icterus Ears/Nose/Mouth/Throat: Mucous Membranes Moist Neck: NL Appearance and Movements; NL JVP, Trachea Midline Respiratory: Symmetrical Chest Expansion and Respiratory Effort, Clear to Auscultation Cardiovascular: NL Sounds; No Murmurs; No JVD, RRR Abdominal: NL Sounds; No Tenderness; No Distention Extremities: No Edema Skin: No Rash or Ulcers Neurological: Alert and Oriented x 3, NL Gait Lines/Tubes/Other Access: Clean, Dry and Intact Peripheral IV Nutrition: Taking PO's Result Diagrams: 08/13/18 07:51 08/12/18 21:12 Assess/Plan/Problems-Billing Assessment: Ms. Lockett is a 48 yo F with no significant PMH who presented to the ED with c/o 6 -8 weeks of nonproductive cough, night sweats, and chest pain and was admitted because of abnormal findings on CT concerning for malignancy vs infectious process. - Patient Problems (1) Cough present for greater than 3 weeks Code(s): R05 - COUGH Comment: - Nonproductive cough for 6-8 weeks with associated CP and night sweats - CT shows bilat upper lobe airspace disease concerning for pneumonia or neoplastic process and moderate left sided pleural effusion - Differentials include malignancy (long smoking history), extra-articular rheumatoid manifestation (FH of RA and arthralgias), CAP - TB has been ruled out with 3 negative acid fast bacilli sputum samples; PPD also negative - Appreciate Pulmonology consult; thoracentesis yesterday - Appreciate ID consult; recommends PPD, acid fast sputum testing, HIV testing, further testing for rheumatoid component - Thoracentesis yesterday shows pleural fluid with elevated WBC, eosinophil predominant; cytology pending - No indication for abx (2) Arthralgia Code(s): M25.50 - PAIN IN UNSPECIFIED JOINT Comment: - Bilateral feet, knees, and hands with edema over bilat MTP joints - Family history of RA (mother) - RF and CRP elevated, though these are nonspecific - Pending QUIANA, ANCA, cryoglobulin, ESR, dsDNA, cyclic citrullinated peptide - Possible that this does represent RA and CT findings are an extra-articular manifestation (3) DVT prophylaxis Comment: - Ambulation (4) Full code status Code(s): Z78.9 - OTHER SPECIFIED HEALTH STATUS Comment: Status and Disposition: Inpatient. Anticipate d/c home when medically stable, likely when cytology results are back. Attending: Ariane Layton
[2018-08-15] MEDS ORDERED: PPD Reading NOTE* (*USE PPD ORDER SET*) ONE (13:00)
--- NOTE | 2018-08-15 14:53 | PN ---
Progress Note - Progress Note Date of Service: 08/15/18 - Pulm f/u note Note: Pt seen and examined at bedside. Pt reports feeling better. Is on RA, denies cough, SOB, pleuritic chest pain is improved Active Medications Generic Name Dose Route Start Last Admin Trade Name Sriramq PRN Reason Stop Dose Admin Acetaminophen 650 mg 08/13/18 00:18 08/13/18 02:51 Tylenol Tab* PO 650 mg Q4H PRN Administration FEVER/PAIN Guaifenesin/Codeine Phosphate 10 ml 08/13/18 00:24 Robitussin Ac 100mg-10mg* PO Q6H PRN COUGH Lorazepam 0.5 mg 08/14/18 08:56 Ativan Tab(*) PO Q6H PRN ANXIETY Vital Signs Temp Pulse Resp BP Pulse Ox 98.1 F 80 16 98/64 96 08/15/18 08:06 08/15/18 08:06 08/15/18 08:06 08/15/18 08:06 08/15/18 08:06 O/E: Pt in NAD HEENT: PERRLA, no JVD Lungs: Decreased at bases CVS: S1, S2+, regular Abd: Soft, BS+ Ext: Normal ROM Skin: No rash Neuro: No focal deficits Laboratory Results - last 24 hr 08/14/18 08/14/18 08/14/18 10:18 10:18 10:18 Fluid Source Pleural Pleural Fluid Cell Count Rvw By Fluid Glucose 104 Fluid Total Protein 5.0 Rheumatoid Factor 08/15/18 00:41 Fluid Source Fluid Cell Count Rvw By Fluid Glucose Fluid Total Protein Rheumatoid Factor 111 H I/R: 48 y o f former smoker with family h/o RA a/w worsening SOB, low grade fever, wt loss, cough found to have air space opacities b/l, greater on left with moderate lt effusion Infectious versus inflammatory versus neoplastic Pt had thoracentesis at bedside with removal of 800 cc of yellow fluid under manual suction on 08/14/18 Pt tolerated procedure well, post procedure CXR didnot reveal any PTX Pt clinically improving Extremity swelling + RF is elevated Pl fluid analysis showed eosinophils and inflammation, glucose within normal limits NO concern for malignancy per CT chest findings No evidence of parasitic infection or trauma It was not traumatic tap Eosinophils are from RA related effusion AFBX2 negative Will need referral to rheumatology for RA management For d/c today Will f/u in pulm clinic in 1 week D/w Haily Mercado
[2018-08-15] MEDS ORDERED: Ibuprofen TAB* 600 MG PO PRN (15:15)
[2018-08-15 16:23] VITALS: BP 116/66
[2018-08-15 16:30] LABS: Cyclic Citrullinated Pept IgG >250.0 U
[2018-08-15 16:58] LABS: Lactate Dehydrogenase, BF 185 U/L
--- NOTE | 2018-08-15 21:10 | DS ---
CC: [facility]; Dr. Patricia Horton; Dr. Shin Waddell * DISCHARGE SUMMARY: DATE OF ADMISSION: 08/13/18 DATE OF DISCHARGE: 08/15/18 PRIMARY CARE PROVIDER: [facility]. ATTENDING PHYSICIAN: Dr. Ariane Layton * (dictated by Haily Mercado NP). PRIMARY DIAGNOSES: 1. Pleural effusion with bilateral upper lobe airspace disease. 2. Chronic cough. 3. Arthralgias. STUDIES WHILE IN THE HOSPITAL: 1. Chest CT on 08/12/18 reads as airspace disease involving the bilateral upper lobes concerning for pneumonia. Followup recommended to exclude neoplastic process. Moderate left-sided pleural effusion. 2. EKG on 08/12/18 shows normal sinus rhythm with a rate of 79, QTc 448, no ischemic changes. 3. Chest ultrasound on 08/14/18 reads as limited ultrasound of the chest for localization for thoracentesis. 4. Chest x-ray on 08/14/18 reads as no appreciable pneumothorax. Small left pleural effusion. Persistent airspace disease of the left lung with mass-like opacification of the right upper lung. CONSULTATIONS WHILE IN THE HOSPITAL: 1. The patient was seen in consultation by Shilpa Echeverria NP, from infectious disease on 08/13/18. 2. The patient was seen in consultation by Dr. Horton from pulmonology on 08/13. PROCEDURE WHILE IN THE HOSPITAL: The patient underwent a left-sided thoracentesis by Dr. Horton on 08/14/18. HISTORY OF PRESENT ILLNESS AND HOSPITAL COURSE: Ms. Lockett is a 48-year-old female with no significant past medical history who presented to the emergency room on 08/13/18 with complaints of a cough. Please see the history and physical by Dr. Joshi for complete summary of the events leading up to this hospitalization. In short, the patient initially presented to [facility] with a nonproductive cough for the last 6 to 8 weeks. At [facility], she was noted to have a chest x-ray with concern for a mass. That chest x-ray reads as, "There has been interval development of a right upper lobe mass with a left- sided pleural effusion, thickening, and pleural effusion with left basilar atelectasis versus consolidation. The differential includes neoplasm. Recommend consideration of further evaluation with contrast-enhanced CT of the chest." She was subsequently sent to the emergency room because of concern for these findings. In the emergency room, the patient did also endorse night sweats and weight loss, though she admitted that the weight loss was intentional. She did also admit to recent swelling and arthralgias of her bilateral hands, knees, and feet and reported a family history of rheumatoid arthritis. The patient had imaging as noted above and was admitted by the hospitalist service. The patient had not had any signs of an infection and did not meet sepsis criteria. So, there is very low suspicion for a bacterial pneumonia. She was given 1 dose of Levaquin in the emergency room, though this was not continued. The differential included tuberculosis, malignancy, and rheumatoid lung. The patient had an uneventful night on the day of admission. I saw the patient the following day and did consult both infectious disease and pulmonology. Infectious disease felt as though it was necessary to rule out tuberculosis with 3 acid-fast bacilli cultures. She was on airborne precautions during this time. They additionally recommended further lab work to check for rheumatoid arthritis. Later in the day, the patient was seen by Dr. Horton, who felt as though this possibly represented a rheumatoid arthritis related lung involvement. She felt as though the patient would benefit from a thoracentesis and so that was scheduled for the following day. The patient did undergo a thoracentesis on 08/14/18 and at that point, fluid samples were sent to the lab for testing and cytology. The thoracentesis did remove 800 mL of yellow fluid. The patient recovered well from the thoracentesis and had no complications. The patient again had an uneventful night and on 08/15/18, I saw the patient in the morning. She reported that she felt as though her cough had decreased somewhat. She at that point did have 3 sputum samples that were negative for acid-fast bacilli and so, tuberculosis was ruled out. I will note that she also had a negative PPD. On exam, lung sounds are clear to auscultation throughout, though she is somewhat diminished at the left base. She is saturating well on room air and her vital signs have been stable. She is noted to have some mild edema to her bilateral hands, particularly over the MTP joint. She also continued to report bilateral hand pain and stiffness as well as pain in her knees and feet. Dr. Horton saw the patient again this morning and felt as though the patient was stable for discharge home. She felt as though this represented a rheumatoid arthritis process and not a malignancy. I will note that complete testing of the thoracentesis fluid is not completed at this point, though she was noted to have an elevated blood count which was predominantly eosinophils. Full cytology report is still pending at this time. The patient was additionally noted to have a mildly elevated ESR of 29, an elevated CRP of 109, a positive rheumatoid factor of 118, and a positive CCP at greater than 250. She was noted to have a negative QUIANA, although rheumatology lab work is still pending at this point. She was negative for HIV. At this point, the patient is anxious to return home. Ms. Lockett is stable for discharge today. Vital signs are as follows: Temp 97.6 , heart rate 79, respiratory rate 16, oxygen saturation 97% on room air, blood pressure 116/66. DISCHARGE MEDICATIONS: New Medication: Ibuprofen 600 mg p.o. q.6 hours p.r.n. pain. DISCHARGE PLAN: Ms. Lockett will be discharged home. Activity will be as tolerated. Diet will be regular as tolerated. I have advised the patient that she should take ibuprofen at this point for management of her joint pain. She was not on any home medications prior to admission. I have provided her with a note for work to return on 08/18/18, with light duty and frequent breaks. The patient does not have a PCP and has agreed to follow up with the [facility]. So, I have advised her to see them in the next 4 to 7 days. She additionally will need to follow up with Dr. Horton within the next 2 weeks. At that point, all of her lab work and cytology should be back and can be reviewed at that point. I will also note that she will likely need to follow up with Dr. Lazar as this does appear to be rheumatoid in nature. I have advised the patient to return to the emergency room or nearest hospital for any worsening symptoms, shortness of breath, lightheadedness, dizziness, chest discomfort, high fever, chills, night sweats, loss of consciousness, or any other worrisome signs or symptoms. DISCHARGE CONDITION: Stable. DISCHARGE DISPOSITION: Home. This is a summarized report of a complex medical history and hospital stay. For further details, please see the entire medical record. TIME SPENT: Approximately 50 minutes were spent on this discharge. HAILY MERCADO, GEOPHYSICAL LABORATORY CHIEF [id number]/[facility] #: [id number] [facility]ITAL[facility]well
[2018-08-18 11:45] LABS: C-ANCA Negative (Negative)
== END 2018-08-15 17:15 | disposition home or self-care (01) | DRG 197 ==
LOC: ED 18:49 → MEDTELE 08-13 00:18
PROVIDERS: ADMIT Internal Medicine; ATTEND Hospitalist
PROC: 0W9B3ZZ Drainage of Left Pleural Cavity, Percutaneous Approach (ICD-10-PCS; principal; 2018-08-14)
DX: M05.19 Rheumatoid lung disease with rheumatoid arthritis of multiple sites (principal); J90 Pleural effusion, not elsewhere classified; R05 Cough; R63.4 Abnormal weight loss; R59.0 Localized enlarged lymph nodes; D64.9 Anemia, unspecified; Z68.27 Body mass index [BMI] 27.0-27.9, adult; Z82.61 Family history of arthritis; Z87.891 Personal history of nicotine dependence
CPT/HCPCS: 36415; 71045; 71260; 76604; 80053; 82595; 82945; 83605; 83615; 83880; 83986; 84157; 85025; 85610; 85652; 85730; 86038; 86140; 86200; 86225; 86255; 86431; 86703; 87040; 87070; 87116; 87205; 87206; 88112; 89051; 93005; 94640; 99284; A9270-GY; J1650; Q9967

== ENCOUNTER 2019-03-23 11:12 | Day surgery (SDC) | payer OTHER ==
--- NOTE | 2019-03-17 12:42 | HP ---
PREOPERATIVE HISTORY AND PHYSICAL: DATE OF ADMISSION/SURGERY: 03/23/19 [facility] DATE OF OFFICE VISIT/ENCOUNTER: 03/11/19 ATTENDING SURGEON: Jacinta Ro MD * (DICTATED BY BERNICE MURRY) PROCEDURE: Ganglion cyst excision, left wrist. HISTORY OF PRESENT ILLNESS: This is a 48-year-old female who was recently diagnosed with rheumatoid arthritis and is followed by Dr. Lazar. She also is complaining of a mass on the volar radial aspect of her wrist. She denies any injury, but thinks the cyst has been present for over 5 months at this point. An MRI did show a ganglion cyst in the area. She would like to have the cyst removed. PAST MEDICAL HISTORY: 1. Rheumatoid arthritis. 2. History of a heart murmur. PAST SURGICAL HISTORY: Right shoulder. CURRENT MEDICATIONS: 1. Caltrate 600 plus vitamin D twice daily. 2. Hydroxychloroquine sulfate 200 mg 2 tabs a day. 3. Prednisone 10 mg daily. ALLERGIES: No known drug allergies. FAMILY MEDICAL HISTORY: Hypertension, rheumatoid arthritis, DVT. 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 She is a former smoker. She quit approximately 4 years ago. Prior to that, she smoked 30 years a pack per day. She denies recreational drug use and does not drink alcohol. REVIEW OF SYSTEMS: Negative for general, cephalic, cardiovascular, respiratory , GI, , other musculoskeletal, integumentary, endocrine, neurologic, and hematologic symptoms. Infectious Disease: Negative for MRSA, hepatitis C, HIV. PHYSICAL EXAMINATION GENERAL: A well-developed, well-nourished 48-year-old female, in no acute distress. VITAL SIGNS: Height 5 feet 5 inches, weight 167 pounds. Pulse rate 67, blood pressure 122/82. HEENT: Normocephalic, atraumatic. Pupils are equal, round, and reactive to light and accommodation. Extraocular movements are intact. Throat is clear. NECK: Supple. No palpable lymph nodes. PULMONARY: Lungs are clear to auscultation bilaterally. No wheezes, rales, or rhonchi. CARDIOVASCULAR: Regular rate and rhythm. S1, S2. Slight murmur noted on auscultation. No rubs or gallops. No edema. ABDOMEN: Positive bowel sounds. Soft, nontender. NEUROLOGICAL: Alert and oriented x3. Cranial nerves II through XII are intact. Sensation is intact to light touch. MUSCULOSKELETAL: On exam of her left wrist, there is a mass on the volar radial aspect of the wrist. It is tender to palpation and appears to be consistent with a ganglion cyst. She has normal wrist motion, but increased pain at the extreme of flexion. She has good motion in her fingers. Neurovascular function is intact. Skin is intact. IMAGING STUDIES: X-rays, AP, lateral, and oblique of her right wrist and hand show slight signs of rheumatoid arthritis. MRI of the wrist shows a cyst at the volar aspect of the radiocarpal joint. IMPRESSION: As above. PLAN: The patient is scheduled to undergo a ganglion cyst excision, left wrist , with Dr. Ro on 03/23/19. She will return to the office 10 days postop for followup and suture removal. A prescription for tramadol was e-scribed to the patient's pharmacy for postoperative pain management. BERNICE MURRY [id number]/[facility] #: [id number] [place]
[~2019-03-23 11:12] MED LIST: Buffered Lidocaine 1% SYRIN* 1 ML/SYRINGE INTRADERM ONE; Lactated Ringers 1000 ML Bag* 1,000 ML IV SCH
[2019-03-23] MEDS ORDERED: Midazolam* 1 MG/ML 5 ML VIAL (5 MG) ONE (12:33)
[2019-03-23] MEDS ORDERED: fentaNYL* 50 MCG/ML 2 ML VIAL (100 MCG VIAL) ONE (12:33)
[2019-03-23] MEDS ORDERED: Lidocaine 1% INJ* 10 MG/ML 30 ML SDV ONE (13:00)
[2019-03-23] MEDS ORDERED: Propofol* 10 MG/ML 20 ML BTL ONE (13:14)
[2019-03-23] MEDS ORDERED: Ketorolac INJ* 30 MG/ML 1 ML VIAL ONE (13:57)
[2019-03-23 14:02] VITALS: BP 133/70
--- NOTE | 2019-03-23 20:07 | OP ---
DATE OF OPERATION: 03/23/19 [facility] DATE OF : 74 SURGEON: Jacinta Ro MD. GENERAL SERVICE OFFICER: BERNICE Greene. ANESTHESIA: Local MAC. PRE-OP DIAGNOSES: Left wrist ganglion and flexor carpi radialis tendinitis. POST-OP DIAGNOSES: Left wrist ganglion and flexor carpi radialis tendinitis. OPERATIVE PROCEDURE: Removal of left wrist ganglion and flexor carpi radialis tendinitis. ESTIMATED BLOOD LOSS: Zero. TOURNIQUET TIME: About 15 minutes. INDICATIONS: Marlyn is a 48-year-old female who has inflammatory arthritis and she has bilateral wrist mass with pain. MRI shows a volar wrist ganglion as well as FCR tendinitis. She presents for removal of both. DESCRIPTION OF PROCEDURE: The patient was brought to the operating room and was given a sedation anesthetic and local infiltration of 10 cc of 1% plain lidocaine overlying the left wrist mass. The skin of her left upper extremity was prepped and draped in the usual sterile fashion. The left upper extremity was exsanguinated and the tourniquet elevated to 250 mmHg. A chevron incision was made centered over the mass. We dissected through the subcutaneous tissue down to the FCR tendon sheath. There was a small area of tenosynovitis at the very distal aspect of the tendon over about a centimeter and a half length. This was thoroughly debrided and sent for pathology. Then dissected down to the radiocarpal joint where a broad-based ganglion cyst was located and was removed and sent for pathology. It was removed with a small portion of the wrist joint capsule. The edges of the capsule were cauterized with the Bovie. The wound was copiously irrigated with the saline and then the skin edges were reapproximated with 4-0 nylon suture. The wound was dressed with Xeroform, 4x4 , Webril, and an Tino wrap. The patient tolerated the procedure well and was brought to the recovery room in good condition. [id number]/[facility] #: [id number] [facility]
== END 2019-03-23 14:30 | disposition home or self-care (01) ==
LOC: OREAST 11:12
PROVIDERS: ATTEND Orthopaedic Surgery
PROC: 0LB60ZZ Excision of Left Lower Arm and Wrist Tendon, Open Approach (ICD-10-PCS; principal; 2019-03-23 12:45)
DX: M67.432 Ganglion, left wrist (principal); M65.832 Other synovitis and tenosynovitis, left forearm; M06.9 Rheumatoid arthritis, unspecified; Z79.52 Long term (current) use of systemic steroids; Z87.891 Personal history of nicotine dependence; Z79.899 Other long term (current) drug therapy
CPT/HCPCS: 88304; J1885; J2250; J2704; J3010